=== PATIENT | male | born 1995 | race Asian ===

== ENCOUNTER → 2024-02-23 | Day surgery (SDC) | payer OTHER ==
[~2024-02-23] VITALS: Ht 185.4 cm; Wt 86.2 kg
[2024-02-23 12:20] VITALS: BP 124/76; TEMP 97.7; O2SAT 99
== END | disposition home or self-care (01) ==
LOC: M SDC 12:16
PROVIDERS: ATTEND Orthopaedic Surgery
DX: M79.A22 Nontraumatic compartment syndrome of left lower extremity (principal)

== ENCOUNTER 2024-03-10 06:11 | Day surgery (SDC) | payer OTHER ==
[~2024-03-10] VITALS: Ht 185.4 cm; Wt 88.7 kg
[2024-03-10] MEDS ORDERED: LR 1,000 ML IV SCH ×2 (06:45→09:30)
[2024-03-10] MEDS ORDERED: propofoL 200 MG/20 ML VIAL As Ordered ONE (07:12)
[2024-03-10] MEDS ORDERED: fentaNYL 100 MCG/2 ML INJECTION As Ordered ONE (07:12)
[2024-03-10] MEDS ORDERED: MIDAZOLAM INJ 2MG/2ML VIAL As Ordered ONE (07:12)
[2024-03-10] MEDS ORDERED: LIDOCAINE 2% 100MG/5ML SDV (FOR ANES.) As Ordered ONE (07:12)
[2024-03-10] MEDS ORDERED: ONDANSETRON 4MG 2ML VIAL As Ordered ONE (07:13)
[2024-03-10] MEDS ORDERED: ACETAMINOPHEN 1000MG 100ML IV BAG As Ordered ONE (07:13)
[2024-03-10] MEDS: LIDOCAINE 2% MDV 20ML VIAL As Ordered ONE (07:15)
[2024-03-10] MEDS: ceFAZolin SOD 2 GM in IV 1 EA IV ONE (07:47)
[2024-03-10] MEDS: TRANEXAMIC ACID 100 MG/ML 10ML VIAL IV ONE (07:55)
[2024-03-10] MEDS ORDERED: KETOROLAC 60MG 2ML VIAL As Ordered ONE (08:16)
[2024-03-10] MEDS ORDERED: HYDROmorphone HCL 2MG/ML 1ML VIAL As Ordered ONE (08:22)
[2024-03-10] MEDS: TRANEXAMIC ACID 100 MG/ML 10ML VIAL As Ordered ONE (08:59)
[2024-03-10] MEDS ORDERED: fentaNYL 100 MCG/2 ML INJECTION IV PRN (09:30)
[2024-03-10] MEDS ORDERED: HYDROMORPHONE HCL 0.5 MG/ 0.5 ML SYRINGE IV PRN (09:30)
[2024-03-10] MEDS ORDERED: ONDANSETRON 4MG 2ML VIAL IV PRN (09:30)
[2024-03-10] MEDS ORDERED: oxyCODONE 5MG TAB PO PRN (09:30)
[2024-03-10] MEDS ORDERED: dexmedeTOMIDine (4MCG/ML)200MCG/50ML BTL (PRECEDEX) As Ordered ONE (10:19)
[2024-03-10 10:40] VITALS: BP 138/66; TEMP 97; O2SAT 96
== END 2024-03-10 11:15 | disposition home or self-care (01) ==
LOC: M SDC 06:11
PROVIDERS: ATTEND Orthopaedic Surgery
DX: M79.A22 Nontraumatic compartment syndrome of left lower extremity (principal)
CPT/HCPCS: 27600; C9290; J0131; J0665; J0690; J1100; J1170; J1885; J2250; J2405; J3010

== ENCOUNTER 2024-04-05 14:20 | Inpatient (IN) | payer OTHER ==
[~2024-04-05] VITALS: Ht 185.4 cm; Wt 86.2 kg
[~2024-04-05 14:20] MED LIST: CELE1CAP4 PO; ECOT81TA5 PO
[2024-04-05] MEDS: ceFAZolin SOD 2 GM in IV 1 EA IV ONE (19:01)
[2024-04-05] MEDS ORDERED: fentaNYL 100 MCG/2 ML INJECTION As Ordered ONE (19:02)
[2024-04-05] MEDS ORDERED: MIDAZOLAM INJ 2MG/2ML VIAL As Ordered ONE (19:02)
[2024-04-05] MEDS ORDERED: ROCURONIUM BROMIDE 50MG/5ML VIAL As Ordered ONE (19:02)
[2024-04-05] MEDS ORDERED: LIDOCAINE 2% 100MG/5ML SDV (FOR ANES.) As Ordered ONE (19:02)
[2024-04-05] MEDS ORDERED: propofoL 200 MG/20 ML VIAL As Ordered ONE (19:02)
[2024-04-05] MEDS ORDERED: ACETAMINOPHEN 1000MG 100ML IV BAG As Ordered ONE (19:13)
[2024-04-05] MEDS ORDERED: ONDANSETRON 4MG 2ML VIAL As Ordered ONE (19:31)
[2024-04-05] MEDS ORDERED: KETOROLAC 60MG 2ML VIAL As Ordered ONE (19:31)
[2024-04-05] MEDS: TRANEXAMIC ACID 100 MG/ML 10ML VIAL As Ordered ONE (19:50)
[2024-04-05] MEDS: VANCOMYCIN 500MG/10ML VIAL As Ordered ONE (19:56)
[2024-04-05] MEDS ORDERED: ONDANSETRON 4MG 2ML VIAL IV PRN (21:00)
[2024-04-05] MEDS ORDERED: MORPHINE 2 MG/ML 1ML VIAL IV PRN (21:00)
[2024-04-05] MEDS ORDERED: oxyCODONE 5MG TAB PO PRN (21:00)
[2024-04-05] MEDS ORDERED: fentaNYL 100 MCG/2 ML INJECTION IV PRN (21:00)
[2024-04-05 21:49] LABS: HEMOGLOBIN 15.2 g/dl (13.5-17.5); MEAN CORPUSCULAR HEMOGLOBIN 28.7 pg (27.0-33.0); MEAN CORPUSCULAR HGB CONC 33.8 g/dl (32.0-36.5); MEAN CORPUSCULAR VOLUME 85.1 fl (80.0-96.0); PLATELET COUNT, AUTOMATED 258 10^3/uL (150-450); RED BLOOD COUNT 5.29 10^6/uL (4.30-6.10); WHITE BLOOD COUNT 9.1 10^3/uL (4.0-10.0)
[2024-04-05 22:15] VITALS: BP 141/95; TEMP 97; O2SAT 100
[2024-04-05 22:15] LABS: ALBUMIN 3.8 G/DL (3.2-5.2); ALKALINE PHOSPHATASE 131 U/L (46-116); ALT/SGPT 55 U/L (7.0-40); AST/SGOT 24 U/L (<34); BILIRUBIN,DIRECT 0.4 MG/DL (<0.4); BILIRUBIN,TOTAL 1.3 MG/DL (0.3-1.2); BLOOD UREA NITROGEN 16 MG/DL (9-23); CALCIUM LEVEL 9.6 MG/DL (8.5-10.1); CARBON DIOXIDE LEVEL 29 MMOL/L (20-31); CHLORIDE LEVEL 103 MMOL/L (98-107); CREATININE FOR GFR 1.18 MG/DL (0.70-1.30); GLOMERULAR FILTRATION RATE > 60.0 (>60); GLUCOSE, FASTING 107 MG/DL (60-100); MAGNESIUM LEVEL 1.7 MG/DL (1.8-2.4); POTASSIUM SERUM 4.4 MMOL/L (3.5-5.1); SODIUM LEVEL 136 MMOL/L (136-145); TOTAL PROTEIN 7.1 G/DL (5.7-8.2)
[2024-04-05] MEDS ORDERED: ACETAMINOPHEN 325 MG TAB PO PRN (23:00)
[2024-04-05 23:36] VITALS: BP 124/89; TEMP 97.5; O2SAT 98
[2024-04-05] MEDS: LR 1,000 ML IV SCH (23:39)
[2024-04-06 00:41] VITALS: BP 116/71; TEMP 97.5; O2SAT 96
[2024-04-06] MEDS: ceFAZolin SOD 1 GM in DEXTROSE 5% (D5W) ADV/MINI-BAG 50 ML IV SCH (02:27)
[2024-04-06] MEDS: MAG SULF 1GM/100ML (MAG RUN) 1 GM in IV 1 EA IV ONE (03:10)
[2024-04-06 04:06] VITALS: BP 114/71; TEMP 97.5; O2SAT 97
[2024-04-06 05:53] LABS: BASO % 0.1 % (0.0-1.0); EOS % 0.1 % (0.0-3.0); HEMATOCRIT 45.7 % (42.0-52.0); HEMOGLOBIN 15.7 g/dl (13.5-17.5); LYMPH # 2.5 10^3/uL (1.5-5.0); LYMPH % 17.2 % (24.0-44.0); MEAN CORPUSCULAR HEMOGLOBIN 28.5 pg (27.0-33.0); MEAN CORPUSCULAR HGB CONC 34.4 g/dl (32.0-36.5); MEAN CORPUSCULAR VOLUME 82.9 fl (80.0-96.0); MONO # 0.9 10^3/uL (0.0-0.8); NEUTROPHILS # 11.1 10^3/uL (1.5-8.5); NEUTROPHILS % 76.2 % (36.0-66.0); PLATELET COUNT, AUTOMATED 278 10^3/uL (150-450); RED BLOOD COUNT 5.51 10^6/uL (4.30-6.10); WHITE BLOOD COUNT 14.6 10^3/uL (4.0-10.0)
[2024-04-06 06:19] LABS: BLOOD UREA NITROGEN 17 MG/DL (9-23); CALCIUM LEVEL 9.9 MG/DL (8.5-10.1); CARBON DIOXIDE LEVEL 27 MMOL/L (20-31); CHLORIDE LEVEL 103 MMOL/L (98-107); CREATININE FOR GFR 0.99 MG/DL (0.70-1.30); GLOMERULAR FILTRATION RATE > 60.0 (>60); GLUCOSE, FASTING 117 MG/DL (60-100); POTASSIUM SERUM 4.5 MMOL/L (3.5-5.1); SODIUM LEVEL 135 MMOL/L (136-145)
[2024-04-06 07:45] LABS: MAGNESIUM LEVEL 2.2 MG/DL (1.8-2.4)
[2024-04-06 07:49] LABS: ERYTHROCYTE SEDIMENTATION RATE 25 mm/hr (0-15)
[2024-04-06] MEDS: ASPIRIN 81MG ENTERIC TABLET PO SCH (08:39)
[2024-04-06] MEDS ORDERED: ASPIRIN 81MG ENTERIC TABLET PO SCH (09:00)
[2024-04-06] MEDS ORDERED: ACET1TAB55 PO (10:18)
[2024-04-06] MEDS ORDERED: HOME MED LIST COMPLETE! XX SCH (10:20)
[2024-04-06 12:39] VITALS: BP 136/95; TEMP 97.9; O2SAT 98
[2024-04-06 20:00] VITALS: BP 115/66; TEMP 97.7; O2SAT 97
[2024-04-07 04:00] VITALS: BP 139/84; TEMP 97.7; O2SAT 99
[2024-04-07 07:33] LABS: BASO % 0.4 % (0.0-1.0); EOS # 0.2 10^3/uL (0.0-0.5); EOS % 1.4 % (0.0-3.0); HEMATOCRIT 42.2 % (42.0-52.0); HEMOGLOBIN 14.2 g/dl (13.5-17.5); LYMPH # 3.7 10^3/uL (1.5-5.0); LYMPH % 34.8 % (24.0-44.0); MEAN CORPUSCULAR HEMOGLOBIN 28.2 pg (27.0-33.0); MEAN CORPUSCULAR HGB CONC 33.6 g/dl (32.0-36.5); MEAN CORPUSCULAR VOLUME 83.7 fl (80.0-96.0); MONO % 9.4 % (2.0-8.0); NEUTROPHILS # 5.8 10^3/uL (1.5-8.5); NEUTROPHILS % 53.4 % (36.0-66.0); PLATELET COUNT, AUTOMATED 242 10^3/uL (150-450); RED BLOOD COUNT 5.04 10^6/uL (4.30-6.10); WHITE BLOOD COUNT 10.8 10^3/uL (4.0-10.0)
[2024-04-07] MEDS: ONDANSETRON 4MG 2ML VIAL IV PRN (11:19)
[2024-04-07] MEDS: MORPHINE 2 MG/ML 1ML VIAL IV PRN (11:20)
[2024-04-07 11:37] VITALS: O2SAT 100
[2024-04-07 12:00] VITALS: BP 128/85; TEMP 97.6; O2SAT 98
[2024-04-07] MEDS ORDERED: SENOKOT S TAB PO PRN (13:55)
[2024-04-07] MEDS ORDERED: NALOXONE INJ 0.4MG/1ML VIAL IV PRN (13:55)
[2024-04-07] MEDS ORDERED: MIRALAX *UNIT DOSE* 17GM PACKET PO PRN (13:55)
[2024-04-07] MEDS ORDERED: MOM 30ML SUSPENSION UDC PO PRN (13:55)
[2024-04-07] MEDS ORDERED: ONDANSETRON 4MG 2ML VIAL IV PRN (14:00)
[2024-04-07] MEDS: MAGNESIUM CITRATE 300ML BTL PO ONE (14:39)
[2024-04-07] MEDS: SENOKOT S TAB PO ONE (14:42)
[2024-04-07] MEDS: PERCOCET 5MG/325MG TAB PO ONE (14:43)
[2024-04-07] MEDS: ENOXAPARIN 40MG/0.4ML SYRINGE (J1650 PER 10MG) SC ONE (14:43)
[2024-04-07 20:51] VITALS: BP 119/73; TEMP 97.5; O2SAT 97
[2024-04-07] MEDS: PERCOCET 5MG/325MG TAB PO SCH (20:53)
[2024-04-08] VITALS (8 sets, daily range): BP systolic 115–151; BP diastolic 73–95; TEMP 97.2–98.2; O2SAT 96–99
[2024-04-08 06:16] LABS: BASO # 0.1 10^3/uL (0.0-0.2); BASO % 0.6 % (0.0-1.0); EOS # 0.4 10^3/uL (0.0-0.5); EOS % 3.7 % (0.0-3.0); HEMATOCRIT 45.5 % (42.0-52.0); HEMOGLOBIN 14.9 g/dl (13.5-17.5); LYMPH # 3.3 10^3/uL (1.5-5.0); LYMPH % 34.5 % (24.0-44.0); MEAN CORPUSCULAR HEMOGLOBIN 28.5 pg (27.0-33.0); MEAN CORPUSCULAR HGB CONC 32.7 g/dl (32.0-36.5); MONO # 0.9 10^3/uL (0.0-0.8); MONO % 9.4 % (2.0-8.0); NEUTROPHILS # 4.8 10^3/uL (1.5-8.5); PLATELET COUNT, AUTOMATED 249 10^3/uL (150-450); RED BLOOD COUNT 5.23 10^6/uL (4.30-6.10); WHITE BLOOD COUNT 9.4 10^3/uL (4.0-10.0)
[2024-04-08 06:44] LABS: BLOOD UREA NITROGEN 13 MG/DL (9-23); CALCIUM LEVEL 9.6 MG/DL (8.5-10.1); CARBON DIOXIDE LEVEL 32 MMOL/L (20-31); CHLORIDE LEVEL 106 MMOL/L (98-107); CREATININE FOR GFR 0.97 MG/DL (0.70-1.30); GLOMERULAR FILTRATION RATE > 60.0 (>60); GLUCOSE, FASTING 85 MG/DL (60-100); POTASSIUM SERUM 4.5 MMOL/L (3.5-5.1); SODIUM LEVEL 140 MMOL/L (136-145)
[2024-04-08] MEDS: ENOXAPARIN 40MG/0.4ML SYRINGE (J1650 PER 10MG) SC SCH (08:02)
[2024-04-08] MEDS: LevoFLOXacin 750 MG TABLET PO SCH (12:29)
[2024-04-09 04:11] VITALS: BP 135/88; TEMP 97.7; O2SAT 99
[2024-04-09 06:09] LABS: BASO # 0.1 10^3/uL (0.0-0.2); BASO % 0.7 % (0.0-1.0); EOS # 0.5 10^3/uL (0.0-0.5); EOS % 5.5 % (0.0-3.0); HEMATOCRIT 42.8 % (42.0-52.0); HEMOGLOBIN 14.3 g/dl (13.5-17.5); LYMPH # 2.5 10^3/uL (1.5-5.0); LYMPH % 27.8 % (24.0-44.0); MEAN CORPUSCULAR HEMOGLOBIN 28.5 pg (27.0-33.0); MEAN CORPUSCULAR HGB CONC 33.4 g/dl (32.0-36.5); MEAN CORPUSCULAR VOLUME 85.3 fl (80.0-96.0); MONO # 0.7 10^3/uL (0.0-0.8); MONO % 8.2 % (2.0-8.0); NEUTROPHILS # 5.1 10^3/uL (1.5-8.5); NEUTROPHILS % 56.9 % (36.0-66.0); PLATELET COUNT, AUTOMATED 248 10^3/uL (150-450); RED BLOOD COUNT 5.02 10^6/uL (4.30-6.10); WHITE BLOOD COUNT 8.9 10^3/uL (4.0-10.0)
[2024-04-09 06:31] LABS: BLOOD UREA NITROGEN 12 MG/DL (9-23); CALCIUM LEVEL 9.9 MG/DL (8.5-10.1); CARBON DIOXIDE LEVEL 30 MMOL/L (20-31); CHLORIDE LEVEL 104 MMOL/L (98-107); CREATININE FOR GFR 0.94 MG/DL (0.70-1.30); GLOMERULAR FILTRATION RATE > 60.0 (>60); GLUCOSE, FASTING 95 MG/DL (60-100); POTASSIUM SERUM 4.4 MMOL/L (3.5-5.1); SODIUM LEVEL 138 MMOL/L (136-145)
[2024-04-09 08:00] VITALS: BP 153/92; TEMP 97.7; O2SAT 96
[2024-04-09 12:00] VITALS: BP 133/85; TEMP 97.5; O2SAT 95
[2024-04-09 16:00] VITALS: BP 132/87; TEMP 97.5; O2SAT 95
[2024-04-09 19:32] VITALS: BP 114/73; TEMP 97.5; O2SAT 94
[2024-04-10 00:03] VITALS: BP 109/73; TEMP 97.5; O2SAT 99
[2024-04-10 04:09] VITALS: BP 113/72; TEMP 97.3; O2SAT 97
[2024-04-10 06:11] LABS: BASO # 0.1 10^3/uL (0.0-0.2); BASO % 0.5 % (0.0-1.0); EOS # 0.6 10^3/uL (0.0-0.5); EOS % 5.9 % (0.0-3.0); HEMATOCRIT 44.9 % (42.0-52.0); LYMPH # 3.5 10^3/uL (1.5-5.0); LYMPH % 35.2 % (24.0-44.0); MEAN CORPUSCULAR HEMOGLOBIN 28.5 pg (27.0-33.0); MEAN CORPUSCULAR HGB CONC 33.4 g/dl (32.0-36.5); MEAN CORPUSCULAR VOLUME 85.2 fl (80.0-96.0); MONO # 0.7 10^3/uL (0.0-0.8); MONO % 7.3 % (2.0-8.0); NEUTROPHILS % 49.9 % (36.0-66.0); PLATELET COUNT, AUTOMATED 267 10^3/uL (150-450); RED BLOOD COUNT 5.27 10^6/uL (4.30-6.10)
[2024-04-10 06:45] LABS: BLOOD UREA NITROGEN 13 MG/DL (9-23); CALCIUM LEVEL 9.9 MG/DL (8.5-10.1); CARBON DIOXIDE LEVEL 31 MMOL/L (20-31); CHLORIDE LEVEL 103 MMOL/L (98-107); CREATININE FOR GFR 0.88 MG/DL (0.70-1.30); GLOMERULAR FILTRATION RATE > 60.0 (>60); GLUCOSE, FASTING 85 MG/DL (60-100); POTASSIUM SERUM 4.5 MMOL/L (3.5-5.1); SODIUM LEVEL 137 MMOL/L (136-145)
[2024-04-10 07:42] VITALS: BP 119/78; TEMP 97.7; O2SAT 96
[2024-04-10 08:53] VITALS: O2SAT 100
[2024-04-10] MEDS ORDERED: ASPI81TAEC PO (11:11)
[2024-04-10] MEDS ORDERED: PERC5TAB12 PO (11:11)
[2024-04-10] MEDS ORDERED: SENO8.6T10 PO (11:11)
[2024-04-10] MEDS ORDERED: MILKSUS7 PO (11:11)
[2024-04-10] MEDS ORDERED: MIRA3350 PO (11:11)
[2024-04-10] MEDS ORDERED: LEVO1TAB40 PO (11:11)
[2024-04-10 12:00] VITALS: BP 121/78; TEMP 97.8; O2SAT 97
[2024-04-10 12:30] VITALS: O2SAT 98
== END 2024-04-10 15:00 | disposition home or self-care (01) | DRG 857 ==
LOC: M SDC 14:20 → M RR INP 21:02 → M MS5PR 22:00
PROVIDERS: ADMIT Student in an Organized Health Care Education/Training Program; ATTEND General Practice
PROC: 0JBP0ZZ Excision of Left Lower Leg Subcutaneous Tissue and Fascia, Open Approach (ICD-10-PCS; principal; 2024-04-05 19:00)
DX: T81.49XA Infection following a procedure, other surgical site, initial encounter (principal); T81.31XA Disruption of external operation (surgical) wound, not elsewhere classified, initial encounter; B96.5 Pseudomonas (aeruginosa) (mallei) (pseudomallei) as the cause of diseases classified elsewhere; B96.1 Klebsiella pneumoniae [K. pneumoniae] as the cause of diseases classified elsewhere; B95.8 Unspecified staphylococcus as the cause of diseases classified elsewhere; Z79.899 Other long term (current) drug therapy; E83.42 Hypomagnesemia; Y84.8 Other medical procedures as the cause of abnormal reaction of the patient, or of later complication, without mention of misadventure at the time of the procedure

== ENCOUNTER 2024-06-30 10:12 | Emergency (ER) | payer OTHER ==
[~2024-06-30] VITALS: Ht 185.4 cm; Wt 90.0 kg
[~2024-06-30 10:12] MED LIST changes: +ACET1TAB55 PO; +ASPI81TAEC PO; +LEVO1TAB40 PO; +MILKSUS7 PO; +MIRA3350 PO; +PERC5TAB12 PO; +SENO8.6T10 PO
[2024-06-30] MEDS ORDERED: VENTAER INH (15:55)
[2024-06-30] MEDS ORDERED: BENZ200C70 PO (15:55)
[2024-06-30 16:03] VITALS: BP 132/86; TEMP 97.2; O2SAT 98
== END 2024-06-30 16:10 | disposition home or self-care (01) ==
LOC: M ED 10:12
DX: U07.1 COVID-19 (principal); J06.9 Acute upper respiratory infection, unspecified; Z79.82 Long term (current) use of aspirin; Z79.52 Long term (current) use of systemic steroids; Z79.899 Other long term (current) drug therapy